=== PATIENT | male | born 1995 | race African-American/Black ===

== ENCOUNTER 2022-05-11 12:44 | Emergency (ER) | payer MEDICAID ==
[~2022-05-11] VITALS: Ht 182.9 cm; Wt 104.5 kg
[2022-05-11 14:26] VITALS: BP 133/82
== END 2022-05-11 15:59 | disposition home or self-care (01) ==
LOC: EMS 12:44
DX: B27.00 Gammaherpesviral mononucleosis without complication (principal)
CPT/HCPCS: 86308; 87430; 99283